=== PATIENT | female | born 1990 | race Caucasian/White ===

== ENCOUNTER → 2019-12-08 16:10 | Outpatient (BNVA) | payer OTHER, SELFPAY | PROVIDERS: Family Provider Nurse Practitioner; Visit Provider Nurse Practitioner Family | DX: Z00.00 Encounter for general adult medical examination without abnormal findings (principal); R53.83 Other fatigue | CPT/HCPCS: 80053; 84443; 85025 ==

== ENCOUNTER → 2020-08-13 07:56 | Outpatient (BNVA) | payer OTHER, SELFPAY | PROVIDERS: Family Provider Nurse Practitioner; Visit Provider Nurse Practitioner Family | DX: Z20.822 Contact with and (suspected) exposure to COVID-19 (principal) | CPT/HCPCS: 87635 ==

== ENCOUNTER → 2020-08-14 00:01 | Outpatient (BNVA) | payer OTHER, SELFPAY | PROVIDERS: Family Provider Nurse Practitioner; Visit Provider Nurse Practitioner Family | DX: Z20.822 Contact with and (suspected) exposure to COVID-19 (principal) | CPT/HCPCS: 87426 ==

== ENCOUNTER → 2020-08-28 10:00 | Outpatient (BNVA) | payer OTHER, SELFPAY | PROVIDERS: Family Provider Nurse Practitioner; Visit Provider Nurse Practitioner Family | DX: R53.82 Chronic fatigue, unspecified (principal); R45.3 Demoralization and apathy; L40.0 Psoriasis vulgaris | CPT/HCPCS: 80053; 82306; 82607; 83550; 84439; 84443; 85025 ==

== ENCOUNTER → 2021-01-29 09:56 | Outpatient (BNVA) | payer OTHER, SELFPAY | PROVIDERS: Family Provider Nurse Practitioner; Visit Provider Nurse Practitioner Women's Health | DX: R87.619 Unspecified abnormal cytological findings in specimens from cervix uteri (principal) | CPT/HCPCS: 87624 ==

== ENCOUNTER → 2021-03-28 09:57 | Outpatient (BNVA) | payer OTHER, SELFPAY | PROVIDERS: Family Provider Nurse Practitioner; Visit Provider Nurse Practitioner Family | DX: N91.2 Amenorrhea, unspecified (principal) | CPT/HCPCS: 84702 ==

== ENCOUNTER → 2021-04-03 15:49 | Outpatient (BNVA) | payer OTHER, SELFPAY | PROVIDERS: Family Provider Nurse Practitioner; Visit Provider Nurse Practitioner Family | DX: R61 Generalized hyperhidrosis (principal); R53.83 Other fatigue | CPT/HCPCS: 80053; 83001; 83002; 83550; 84443; 85651; 86140 ==

== ENCOUNTER → 2021-05-28 09:18 | Outpatient (BNVA) | payer OTHER, SELFPAY | PROVIDERS: Family Provider Nurse Practitioner; Visit Provider Nurse Practitioner Family | DX: R74.8 Abnormal levels of other serum enzymes (principal) | CPT/HCPCS: 80053; 86480 ==

== ENCOUNTER 2022-11-04 06:44 | Outpatient (CLI) | payer OTHER, SELFPAY ==
--- NOTE | 2022-11-04 | US_ITS ---
WS: [id number] Exam: US OB <=14 wk fetus w transvag Date/Time of Exam: 11/04/2022 12:00 AM Reason For Exam: SUPERVISION OF OTHER NORMAL SECOND TRIMESTER NUMBER: One PRESENTATION: Vertex CARDIAC ACTIVITY: 152 MOVEMENT: Satisfactory AMNIOTIC FLUID VOLUME: Subjectively normal PLACENTA: Anterior grade 1. No previa or abruption. BIPARIETAL DIAMETER MEASUREMENTS: 5.5 cm, equals 22w6d. FEMORAL LENGTH MEASUREMENTS: 3.9 cm, equals 22w3d. ABDOMINAL CIRCUMFERENCE: 17.9 cm, equals 22w6d. ESTIMATED WEIGHT: 523 g; ESTIMATED GESTATIONAL AGE: 22 weeks 5 days The stomach, kidneys, bladder and cord insertion appear normal. Three-vessel umbilical cord was confirmed. The spine was unremarkable. 4 chambered heart was confirmed. The lateral ventricles, cere bellum and cisterna magna all appear normal. US/US OB <=14 wk fetus w transvag IMPRESSION: Viable intrauterine with single fetus estimated at 22 weeks 5 days ge stational age, MEGHANA is 03/05/2024
== END 2022-11-04 06:45 | disposition home or self-care (01) ==
LOC: RADOUTREAD 11-05 06:48
PROVIDERS: Visit Provider Family Medicine
DX: Z34.92 Encounter for supervision of normal pregnancy, unspecified, second trimester (principal); Z3A.22 22 weeks gestation of pregnancy

== ENCOUNTER 2022-12-24 13:54 | Outpatient (RCR) | payer OTHER, SELFPAY | END 2023-01-17 23:59 | disposition home or self-care (01) | LOC: SPT 13:54 | PROVIDERS: PCP Family Medicine; Visit Provider Family Medicine | DX: M62.9 Disorder of muscle, unspecified (principal); R10.2 Pelvic and perineal pain | CPT/HCPCS: 97110; 97161 ==

== ENCOUNTER 2023-01-18 06:00 | Outpatient (RCR) | payer OTHER, SELFPAY | END 2023-02-17 23:59 | disposition home or self-care (01) | LOC: SPT 06:00 | PROVIDERS: PCP Family Medicine; Visit Provider Family Medicine | DX: M62.9 Disorder of muscle, unspecified (principal); R10.2 Pelvic and perineal pain | CPT/HCPCS: 97110 ==

== ENCOUNTER 2023-03-03 19:05 | Inpatient (IN) | payer OTHER, SELFPAY ==
[2023-03-03] VITALS (8 sets, daily range): BP systolic 91–140; BP diastolic 57–92; PULSE 84–115; RESP 16; BMI 27.8
[2023-03-03 19:54] LABS: Basophils % 0.4 %; Eosinophils # 0.1 10^3/uL (0.0-0.8); Hematocrit 34.8 % (36-47); Lymphocytes # 1.7 10^3/uL (0.8-4.8); Lymphocytes % 15.8 %; Mean Corpuscular HGB Conc 33.3 g/dL (30-55); Mean Corpuscular Volume 89.9 fl (85-98); Mean Platelet Volume 10.9 fL (7.4-10.4); Monocytes # 0.6 10^3/uL (0.2-0.9); Monocytes % 5.2 %; Neutrophils # 8.19 10^3/uL (1.8-7.7); Neutrophils % 77.1 %; Nucleated Red Blood Cells % 0 %; Platelet Count 184 10^3/cmm (157-399); Red Blood Count 3.87 10^6/uL (3.85-5.65); Red Cell Distribution Width 12.5 % (12.1-15.1); White Blood Count 10.62 10^3/uL (3.29-11.43)
[2023-03-03] MEDS: miSOPROStol 100 mcg tablet 25 MCG SUBLINGUAL (21:14)
[2023-03-04] VITALS (36 sets, daily range): BP systolic 89–153; BP diastolic 54–87; PULSE 74–116; RESP 15–18; TEMP 36.4–37.1; O2SAT 93–99
[2023-03-04] MEDS: miSOPROStol 100 mcg tablet 25 MCG SUBLINGUAL (01:20)
[2023-03-04] MEDS: fentaNYL 50 mcg/mL INJ 2mL IVP (01:50)
[2023-03-04] MEDS: lactated ringers 1,000 ML 999 ML IV ×2 (01:54→02:57)
--- NOTE | 2023-03-04 02:58 | ANES.PREANE2 ---
Pre-Anesthetic Assessment Height/Weight: Height 1.7 m Weight 80.739 kg Pulse Resp BP Pulse Ox O2 Del Method 108 H 16 129/87 97 Room Air 03/04/23 02:52 03/04/23 01:50 03/04/23 02:52 03/04/23 02:51 03/03/23 19:49 Preop Diagnosis: Labor pain CANDIS Was Beta Clementina taken within 24 hours: N/A Was Clonidine taken within 24 hours: N/A Social No alcohol and No tobacco Exam alert, oriented x 3, clear to auscultation bilaterally and regular rate & rhythm Airway Submandibular: within normal limits Cervical ROM: within normal limits Mallampati: Class II Dentition: full History/ROS No significant history except as noted and No significant complaints Pulmonary None reported CV/HEM None reported None reported Hepatic None reported GI Gastroesophageal Reflux Disease Metabolic None reported Musc/skel None reported Neuropsych None reported Anesthetic Plan ASA status: 2 Anesthesia: Anesthesia Evaluation and MAC Risk of > 500 ml blood loss (7ml/kg in children): No Medications/Allergies Home Medications Medication Instructions Recorded Confirmed Last Taken Type valacyclovir 1 gram tablet 2,000 mg PO BID PRN cold sores #30 06/27/20 04/03/21 Unknown Rx tabs ketoconazole 2 % shampoo 1 applic topical .2 x weekly #120 08/09/20 04/03/21 Unknown Rx mL tretinoin 0.1 % topical cream 1 applic topical DAILY #45 grams 11/26/20 04/03/21 Unknown Rx apremilast 30 mg tablet (Otezla) 30 mg PO BID #60 tabs 01/30/21 04/03/21 Unknown Rx buspirone 7.5 mg tablet 7.5 mg PO TID PRN STEFFEN 30 days #90 04/03/21 04/03/21 Unknown Rx tabs levonorgestrel 0.15 mg-ethinyl 1 tab PO DAILY #84 tabs 04/16/21 Unknown Rx estradiol 0.03 mg tablet (Levora-28) clobetasol 0.05 % topical foam 1 applic topical DAILY #100 grams 05/15/21 Unknown Rx clobetasol 0.05 % scalp solution 1 applic topical DAILY #50 mL 10/28/21 Unknown Rx ketoconazole 2 % topical cream 1 applic topical BID #30 grams 10/28/21 Unknown Rx nryplwqbshkq-zevgelfufsgx-uwhnwlkbs 1 applic topical .qhs #30 grams 11/08/21 Unknown Rx 0.01 %-4 %-0.05 % topical cream (Tri-Gail) fluocinolone 0.01 % scalp oil and 1 ea topical .qod #118.28 mL 11/18/21 Unknown Rx shower cap fluticasone propionate 0.05 % 1 applic topical BID PRN allergic 10/08/22 Unknown Rx topical cream reaction #30 grams Allergies Allergy/AdvReac Type Severity Reaction Status Date / Time sesame seed Allergy Severe anaphylaxis Verified 04/03/21 15:21 Current Medications Generic Name Dose Route Start Last Admin Trade Name Freq PRN Reason Stop Dose Admin Fentanyl 25 - 100 mcg 03/04/23 01:40 03/04/23 01:50 Fentanyl 50 Mcg/Ml Inj 2ml IVP 25 mcg Q1H PRN Administration SEVERE PAIN Lactated Ringer's 1,000 mls @ 999 mls/hr 03/04/23 01:41 03/04/23 01:54 Lactated Ringers IV 999 mls/hr .Q1H1M PRN Administration See label comments PFSH Anesthesia Medical History Erythrodermic psoriasis Fatigue Herpes labialis without complication No pertinent past medical history neg dx- dm, thyroid, htn, dvt/pe PCP: Daly Lucas Pelvic floor dysfunction r/t trauma after vaginal delivery Surgical History History of breast augmentation (~2019) Silicone under the muscle History of hernia repair right inguinal-- congenital History of knee surgery ACL and scope--- both Left knee History of loop electrical excision procedure (LEEP) (~2017) Family History Grandfather Hyperlipidemia paternal and maternal Grandmother Hyperlipidemia maternal and paternal Other Hypertension Denies family history of Colon cancer Ovarian cancer Diabetes Uterine cancer Thyroid disease Stroke Social History Substance/Drug Use: current Substance/Drug use frequency: Special occassions/opportunity only Do you think of yourself as: Straight/Heterosexual Female Reproductive History : 2 Data Anesthesia 03/03/23 19:13 Short CBC 03/03/23 Range/Units 19:13 WBC 10.62 (3.29-11.43) 10^3/uL Hgb 11.60 (11.27-16.99) g/dL Hct 34.8 L (36-47) % MCV 89.9 (85-98) fl Plt Count 184 (157-399) 10^3/cmm Neut % (Auto) 77.1 % Neut # (Auto) 8.19 H (1.8-7.7) 10^3/uL Blood Bank 03/03/23 19:13 Blood Type O Negative Rho(D) Type Negative Antibody Screen Positive Cardiac Studies: No Data to Display
--- NOTE | 2023-03-04 02:59 | ANES.PROC ---
Anesthesia Procedures Procedure/Date: 03/04/23 Epidural: Time Out Performed: Yes Consents Signed: Procedure Consent Consent: requested by attending/covering physician, from patient, risks and benefits reviewed and patient agrees to proceed Lumbar Level: L3-L4 Epidural position: sitting Epidural procedure: sterile prep of area, 1% lidocaine to numb the area, 18 g needle, neg for paresthesia, test dose given (5), 1.5% xylocaine 1:200k epi (5cc), 0.2% Ropivacaine bolus ml (4cc and Fentanyl 100mcg), placed PCEA, no systemic response, sterile dressing applied, L.U.D. no apparent complications and 0.2% Ropiavacaine @ mls/hr (10cc) Additional Comments: Pt tolerated well
[2023-03-04] MEDS: ROPivacaine syringe 100 MG/50 ML SYRINGE 10 MG EPIDURAL (03:01)
[2023-03-04] MEDS: oxytocin 30 UNIT/500 ML BAG 600 UNIT IV (04:24)
--- NOTE | 2023-03-04 04:30 | PM.OPHPUD ---
Labor & Delivery H&P Update Date of Procedure: March 04, 2023 Date H&P Performed: 03/03/23 Changes to previous documentation: Spontaneous rupture of membranes Admission Diagnosis: 32-year-old 2 para 1-0-0-1 Preop diagnosis: Spontaneous rupture of membranes Planned procedure: Spontaneous vaginal delivery Other information: The patient presented to the hospital complaining of multiple episodes of Gushing fluid and was noted to have fluid running down her leg when she came into the hospital. Her vaginal vault demonstrated copious amounts of clear liquid. She was admitted to the hospital. She was placed on Cytotec 25 mcg x 1. Her had been unremarkable. Her blood type is O-. Her antibody screen was negative. Her glucose screen was 119. Hepatitis B hepatitis C were negative. RPR was negative. Her drug screen was negative. Her GBS status is negative. She is rubella nonimmune. Related Problem List Diagnoses (1) 38 weeks gestation of : (2) Rupture of membranes with clear amniotic fluid: A&P Assessment and plan (1) 38 weeks gestation of : Since the patient is not having consistent contractions, we will augment her labor with Cytotec. I anticipate a spontaneous vaginal delivery. Status: Acute (2) Rupture of membranes with clear amniotic fluid: Status: Acute
--- NOTE | 2023-03-04 04:38 | PM.DELIVERY ---
Delivery Note: Date of delivery: March 04, 2023 Pre-delivery diagnoses: 32-year-old 2 para 1-0-0-1 with spontaneous rupture of membranes Post-delivery diagnoses: Status post spontaneous vaginal delivery Procedure: Spontaneous vaginal delivery Delivering Physician: Jose J Mac Estimated blood loss (mL): 150 Pre-Delivery Course: The patient presented to the hospital with spontaneous rupture membranes. Cytotec 25 mcg x 1 sublingual was given. An epidural was placed. She then progressed to complete without difficulty. Delivery: DELIVERY: The patient progressed to complete without difficulty. She delivered a male with a weight of 7 pounds 7 ounces with Apgars of 9, 9. The baby was delivered from the KEVIN position. and placed on the mother's abdomen. The cord was then clamped and cut. There was a nuchal cord x1 which was easily reduced prior to delivery. There was no meconium. The placenta and 3 vessel cord were delivered intact shortly thereafter. The perineum and vaginal vault were carefully examined. A superficial 1 cm anterior laceration was noted just posterior to the clitoris which did not require repair. Both the mother and the baby were in stable condition. Post-Delivery Status: Good History History History 1 Term 1 0 Miscarriages/Ectopic 0 Living Children 1 A&P Assessment and plan (1) Spontaneous vaginal delivery: I anticipate routine care. (2) Rupture of membranes with clear amniotic fluid: (3) 38 weeks gestation of : Coding Level of Care Code Acute Code for Chg Fwd Diagnoses Spontaneous vaginal delivery O80 Rupture of membranes with clear amniotic fluid 38 weeks gestation of Z3A.38
[2023-03-04] MEDS: ibuprofen 800 mg tablet PO ×3 (08:26→20:25)
[2023-03-04] MEDS: docusate sodium 100 mg Capsule PO ×2 (08:26→18:44)
[2023-03-04] MEDS: prenatal vitamin Capsule 1 CAP PO (08:26)
[2023-03-04 16:41] LABS: Hematocrit 31.6 % (36-47); Mean Corpuscular HGB Conc 33.2 g/dL (30-55); Mean Corpuscular Hemoglobin 29.9 pg (27-33); Platelet Count 185 10^3/cmm (157-399); Red Blood Count 3.51 10^6/uL (3.85-5.65); Red Cell Distribution Width 12.4 % (12.1-15.1); White Blood Count 11.41 10^3/uL (3.29-11.43)
--- NOTE | 2023-03-05 08:14 | PM.OBGYDC ---
Discharge Providers PROCUREMENT MANAGER Date of Admission: 03/03/23 19:05 Date of Discharge: 03/05/23 Attending Provider at Admission: oJse J Mac MD Attending Provider at Discharge: Jose J Mac MD Primary Care Provider: Jose J Mac MD Diagnoses at Discharge Discharge Diagnosis (1) Spontaneous vaginal delivery: Status: Acute (2) Rupture of membranes with clear amniotic fluid: Status: Acute (3) 38 weeks gestation of : Status: Acute Reason for Visit Reason for Visit: possible ROM Information Peripartum Data: Infant Delivery Method: Vaginal Physical Exam Narrative: The patient is alert. She appears comfortable. Her heart has a regular rate and rhythm with no murmurs appreciated. Lungs are clear to auscultation bilaterally. Her fundus is firm and below the umbilicus. Urinary Catheter Management: Rojas: Cath Placed During This Visit: yes, but has since been removed by the nurse Reason for Continuing Indwelling Catheter: Required Immobilization for Trauma or Surgery or Anesthesia Urinary Catheter Date of Insertion: 03/04/23 Urinary Catheter Time of Insertion: 03:40 Date Urinary Catheter Removed: 03/04/23 Time Urinary Catheter Discontinued: 04:10 History History History 2 Term 2 0 Miscarriages/Ectopic 0 Living Children 2 Discharge Data Studies Completed and Pending Pending at discharge Category Date Time Status Antibody Identification Routine Lab 03/03/23 19:13 Results Complete Crossmatch Routine Lab 03/03/23 19:13 Results Rho D Immune Globulin Routine Lab 03/03/23 19:13 Results Type and Screen Routine Lab 03/03/23 19:13 Results Laboratory Results WBC 11.41 10^3/uL (3.29-11.43) 03/04/23 16:30 RBC 3.51 10^6/uL (3.85-5.65) L 03/04/23 16:30 Hgb 10.50 g/dL (11.27-16.99) L 03/04/23 16:30 Hct 31.6 % (36-47) L 03/04/23 16:30 MCV 90.0 fl (85-98) 03/04/23 16:30 MCH 29.9 pg (27-33) 03/04/23 16:30 MCHC 33.2 g/dL (30-55) 03/04/23 16:30 RDW 12.4 % (12.1-15.1) 03/04/23 16:30 Plt Count 185 10^3/cmm (157-399) 03/04/23 16:30 MPV 11.0 fL (7.4-10.4) H 03/04/23 16:30 Neut % (Auto) 77.1 % 03/03/23 19:13 Lymph % (Auto) 15.8 % 03/03/23 19:13 Heard % (Auto) 5.2 % 03/03/23 19:13 Eos % (Auto) 1.0 % 03/03/23 19:13 Baso % (Auto) 0.4 % 03/03/23 19:13 Neut # (Auto) 8.19 10^3/uL (1.8-7.7) H 03/03/23 19:13 Lymph # (Auto) 1.7 10^3/uL (0.8-4.8) 03/03/23 19:13 Heard # (Auto) 0.6 10^3/uL (0.2-0.9) 03/03/23 19:13 Eos # (Auto) 0.1 10^3/uL (0.0-0.8) 03/03/23 19:13 Baso # (Auto) 0.0 10^3/uL (0.0-0.1) 03/03/23 19:13 Nucleated RBC % (auto) 0 % 03/03/23 19:13 Nucleated RBCs # 0.0 /100WBC 03/03/23 19:13 Blood Type O Negative 03/03/23 19:13 Rho(D) Type Negative 03/03/23 19:13 Antibody Screen Positive 03/03/23 19:13 Antibody Identification Anti-D 03/03/23 19:13 Screen Negative (Negative) 03/04/23 16:30 Vitals Last Vital Signs Temp 98.2 F 03/04/23 22:00 Pulse 82 03/04/23 22:00 Resp 15 03/04/23 22:00 BP 112/80 03/04/23 22:00 Pulse Ox 98 03/04/23 22:00 O2 Del Method Room Air 03/04/23 22:00 Results Labs OB ([facility]): Obstetrics US 11/04/22 Blood Type O Negative 03/03/23 Antibody Screen Positive 03/03/23 Hct 31.6 % (36-47) L 03/04/23 Hgb 10.50 g/dL (11.27-16.99) L 03/04/23 Rho(D) Type Negative 03/03/23 Plt Count 185 10^3/cmm (157-399) 03/04/23 TSH 1.44 uIU/mL (0.27-4.20) 04/03/21 Free T4 1.30 ng/dL (0.82-1.77) 08/28/20 FSH 7.9 mIU/mL 04/03/21 Ser , Semi-Qnt 0.50 mIU/mL 03/28/21 Pap Smear Interpret See note A 01/29/21 Discharge Plan Discharge Patient Disposition: Home Condition: Stable Prescriptions: New ibuprofen 800 mg Tablet 800 mg PO TID Qty: 45 0RF -U 106.5-1 mg Capsule 1 cap PO DAILY Qty: 90 1RF Discontinued tretinoin 0.1 % cream 1 applic topical DAILY Qty: 45 3RF Rx Instructions: Apply pea-sized amount to clean, dry face nightly Otezla 30 mg tablet 30 mg PO BID Qty: 60 5RF buspirone 7.5 mg tablet 7.5 mg PO TID PRN (Reason: STEFFEN) 30 Days Qty: 90 0RF ketoconazole 2 % shampoo 1 applic topical .2 x weekly Qty: 120 3RF Rx Instructions: Lather into scalp 2 times weekly. Allow to sit on scalp for 5 minutes before rinsing. valacyclovir 1 gram tablet 2,000 mg PO BID PRN (Reason: cold sores) Qty: 30 3RF Rx Instructions: Dose 2000 mg PO q12h x1 day; Start: NAUN after sx onset levonorgestrel-ethinyl estrad [Levora-28] 0.15-0.03 mg tablet 1 tab PO DAILY Qty: 84 3RF clobetasol 0.05 % foam 1 applic topical DAILY Qty: 100 3RF clobetasol 0.05 % solution 1 applic topical DAILY Qty: 50 3RF Rx Instructions: Apply few drops to itchy areas of scalp as needed. 340 B if needed ketoconazole 2 % cream 1 applic topical BID Qty: 30 6RF Rx Instructions: Apply to red scaly areas of the face 1-2 times daily Tri-Gail 0.01-4-0.05 % cream 1 applic topical .qhs Qty: 30 3RF Rx Instructions: Apply thin film to affected areas on face nightly at least 30 minutes before going to bed 340B fluocinolone and shower cap 0.01 % oil 1 ea topical .qod Qty: 118.28 3RF Rx Instructions: Apply and leave on scalp over night prior to washing hair. fluticasone propionate 0.05 % cream 1 applic topical BID PRN (Reason: allergic reaction) Qty: 30 1RF Rx Instructions: Apply to affected areas twice daily as needed for irritation. Discharge Orders: Discharge Order (Routine); Ordered 03/05/23 Ordered By: Jose J Mac Referrals: Jose J Mac MD [Primary Care Provider] - 6 Weeks (Scheduled the first week of April) Discharge Diet: Usual diet Discharge Activity: Limit activity as instructed Patient Instructions: Depression (DC), Bleeding (DC), Preeclampsia and Eclampsia After Delivery (GEN), Hemorrhage (DC), OB Discharge Report, OB Food/Drug Interaction Guide, Opioid Safety, OB Home Care, OB [facility] Parent Packet, OB Vaginal Deliveries Discharge Attestations PROCUREMENT MANAGER Time Spent in Discharge Care*: less than 30 min Coding Level of Care Code Acute Code for Chg Fwd Diagnoses Spontaneous vaginal delivery O80 Rupture of membranes with clear amniotic fluid 38 weeks gestation of Z3A.38
--- NOTE | 2023-03-05 08:41 | ANE.PACU2 ---
Inpatient post-anesthesia follow up: Airway intact: Yes Vital signs: Temperature 98.2 F Pulse Rate 82 Respiratory Rate 15 Blood Pressure 112/80 Pulse Oximetry 98 Oxygen Delivery Me thod Room Air Oxygen Flow Rate Fraction of Inspir ed Oxygen Hydration adequate: Yes Nausea and vomiting: No Pain level: 1 Mental status: Baseline
[2023-03-05 09:30] VITALS: PULSE 80; RESP 17
[2023-03-05] MEDS: prenatal vitamin Capsule 1 CAP PO (09:49)
[2023-03-05] MEDS: ibuprofen 800 mg tablet PO (09:49)
[2023-03-05] MEDS: docusate sodium 100 mg Capsule PO (09:49)
[2023-03-05 09:50] VITALS: BP 113/78; PULSE 80; RESP 16; TEMP 36.7
[2023-03-05 10:00] VITALS: BP 113/78; PULSE 80; RESP 16; TEMP 36.7
== END 2023-03-05 10:05 | disposition home or self-care (01) | DRG 807 ==
LOC: OPOB 19:16 → OBGYN 19:16
PROVIDERS: Admitting Provider Family Medicine; PCP Family Medicine; Visit Provider Family Medicine
DX: O69.81X0 Labor and delivery complicated by cord around neck, without compression, not applicable or unspecified (principal); Z37.0 Single live birth; Z3A.38 38 weeks gestation of pregnancy
CPT/HCPCS: 36415; 36430; 51702; 59025; 59409; 80503; 83986; 85025; 85027; 85460; 86850; 86870; 86900; 90384; 96372; 96374; 99211; J2590; J2795; J3010; J7120